=== PATIENT | male | born 1955 | race Caucasian/White ===

== ENCOUNTER → 2023-05-14 | Outpatient (CLI) | payer BC, MEDICARE | END | disposition home or self-care (01) | LOC: RESCLI 13:26 | PROVIDERS: ATTEND Student in an Organized Health Care Education/Training Program | DX: M54.9 Dorsalgia, unspecified (principal); I12.9 Hypertensive chronic kidney disease with stage 1 through stage 4 chronic kidney disease, or unspecified chronic kidney disease; N18.30 Chronic kidney disease, stage 3 unspecified; E11.22 Type 2 diabetes mellitus with diabetic chronic kidney disease; L97.909 Non-pressure chronic ulcer of unspecified part of unspecified lower leg with unspecified severity; M06.9 Rheumatoid arthritis, unspecified; E78.5 Hyperlipidemia, unspecified; E03.9 Hypothyroidism, unspecified; C43.9 Malignant melanoma of skin, unspecified; Z79.899 Other long term (current) drug therapy ==

== ENCOUNTER → 2024-05-13 | Outpatient (CLI) | payer MEDICARE | END | disposition home or self-care (01) | LOC: RESCLI 04:12 | PROVIDERS: ATTEND Internal Medicine | DX: M54.9 Dorsalgia, unspecified (principal); I12.9 Hypertensive chronic kidney disease with stage 1 through stage 4 chronic kidney disease, or unspecified chronic kidney disease; E11.22 Type 2 diabetes mellitus with diabetic chronic kidney disease; N18.9 Chronic kidney disease, unspecified; E03.9 Hypothyroidism, unspecified; M86.9 Osteomyelitis, unspecified; E78.5 Hyperlipidemia, unspecified; M06.9 Rheumatoid arthritis, unspecified; L97.909 Non-pressure chronic ulcer of unspecified part of unspecified lower leg with unspecified severity; Z98.890 Other specified postprocedural states; Z79.899 Other long term (current) drug therapy ==